=== PATIENT | male | born 1995 | race Caucasian/White ===

== ENCOUNTER 2018-01-11 17:34 | Emergency (ER) | payer BC ==
[2018-01-11 18:52] LABS: CALCIUM 8.7 mg/dL (8.5-10.1); CREATININE 1.1 mg/dL (0.7-1.3); POTASSIUM 3.8 mmol/L (3.5-5.1)
[2018-01-11 18:59] LABS: BASO % 0 % (0-3); EOS # 0.1 x10^3/uL (0.0-0.7); EOS % 1 % (0-3); HEMATOCRIT 44.7 % (39.0-53.0); HEMOGLOBIN 15.6 g/dL (13.0-17.5); LYMPH # 1.6 x10^3/uL (1.0-4.8); LYMPH % 32 % (24-48); MEAN CORPUSCULAR HEMOGLOBIN 32 pg (25-35); MEAN CORPUSCULAR HGB CONC 35 g/dL (31-37); MEAN CORPUSCULAR VOLUME 92 fL (79-100); MONO # 0.5 x10^3/uL (0.0-1.1); MONO % 11 % (0-9); NEUT # 2.8 x10^3uL (1.8-7.7); NEUT % 56 % (31-73); PLATELET COUNT 239 x10^3/uL (140-400); RED BLOOD COUNT 4.85 x10^6/uL (4.30-5.70); RED CELL DISTRIBUTION WIDTH 12.5 % (11.5-14.5); WHITE BLOOD COUNT 5.1 x10^3/uL (4.0-11.0)
--- NOTE | 2018-01-11 19:08 | PHYS DOC ---
Adult General Chief Complaint Chief Complaint CHEST PAIN HPI HPI 22 years old male presented to the emergency department with right-sided chest pain described as sharp constant pain in the right side get worse if he sleeps on the right side and also if she coughs denies shortness of breath denies hemoptysis no any other symptoms Review of Systems Review of Systems Constitutional: Denies fever or chills [] Eyes: Denies change in visual acuity, redness, or eye pain [] HENT: Denies nasal congestion or sore throat [] Respiratory: Denies cough or shortness of breath [] Cardiovascular: No additional information not addressed in HPI [] GI: Denies abdominal pain, nausea, vomiting, bloody stools or diarrhea [] : Denies dysuria or hematuria [] Musculoskeletal: Denies back pain or joint pain [] Integument: Denies rash or skin lesions [] Neurologic: Denies headache, focal weakness or sensory changes [] Endocrine: Denies polyuria or polydipsia [] All other systems were reviewed and found to be within normal limits, except as documented in this note. Allergies Allergies Allergies Coded Allergies Type Severity Reaction Last Updated Verified No Known Drug Allergies 01/11/18 No Physical Exam Physical Exam Constitutional: Well developed, well nourished, no acute distress, non-toxic appearance. [] HENT: Normocephalic, atraumatic, bilateral external ears normal, oropharynx moist, no oral exudates, nose normal. [] Eyes: PERRLA, EOMI, conjunctiva normal, no discharge. [] Neck: Normal range of motion, no tenderness, supple, no stridor. [] Cardiovascular:Heart rate regular rhythm, no murmur [] Lungs & Thorax: Bilateral breath sounds clear to auscultation [] Abdomen: Bowel sounds normal, soft, no tenderness, no masses, no pulsatile masses. [] Skin: Warm, dry, no erythema, no rash. [] Back: No tenderness, no CVA tenderness. [] Extremities: No tenderness, no cyanosis, no clubbing, ROM intact, no edema. [] Neurologic: Alert and oriented X 3, normal motor function, normal sensory function, no focal deficits noted. [] Psychologic: Affect normal, judgement normal, mood normal. [] Current Patient Data Vital Signs Vital Signs Date Time Temp Pulse Resp B/P (MAP) Pulse Ox O2 Delivery O2 Flow Rate FiO2 01/11/18 17:40 98.1 70 14 100 Room Air Lab Results Laboratory Tests Test 01/11/18 18:27 White Blood Count 5.1 x10^3/uL (4.0-11.0) Red Blood Count 4.85 x10^6/uL (4.30-5.70) Hemoglobin 15.6 g/dL (13.0-17.5) Hematocrit 44.7 % (39.0-53.0) Mean Corpuscular Volume 92 fL (79-100) Mean Corpuscular Hemoglobin 32 pg (25-35) Mean Corpuscular Hemoglobin Concent 35 g/dL (31-37) Red Cell Distribution Width 12.5 % (11.5-14.5) Platelet Count 239 x10^3/uL (140-400) Neutrophils (%) (Auto) 56 % (31-73) Lymphocytes (%) (Auto) 32 % (24-48) Monocytes (%) (Auto) 11 % (0-9) H Eosinophils (%) (Auto) 1 % (0-3) Basophils (%) (Auto) 0 % (0-3) Neutrophils # (Auto) 2.8 x10^3uL (1.8-7.7) Lymphocytes # (Auto) 1.6 x10^3/uL (1.0-4.8) Monocytes # (Auto) 0.5 x10^3/uL (0.0-1.1) Eosinophils # (Auto) 0.1 x10^3/uL (0.0-0.7) Basophils # (Auto) 0.0 x10^3/uL (0.0-0.2) Sodium Level 138 mmol/L (136-145) Potassium Level 3.8 mmol/L (3.5-5.1) Chloride Level 101 mmol/L (98-107) Carbon Dioxide Level 28 mmol/L (21-32) Anion Gap 9 (6-14) Blood Urea Nitrogen 19 mg/dL (8-26) Creatinine 1.1 mg/dL (0.7-1.3) Estimated GFR (Cockcroft-Gault) 83.0 Glucose Level 86 mg/dL (70-99) Calcium Level 8.7 mg/dL (8.5-10.1) Troponin I Quantitative < 0.017 ng/mL (0-0.055) EKG EKG [] Radiology/Procedures Radiology/Procedures [] Course & Med Decision Making Course & Med Decision Making Pertinent Labs and Imaging studies reviewed. (See chart for details) [] Final Impression Final Impression [] Problems: (1) Costochondritis, acute Dragon Disclaimer Dragon Disclaimer This electronic medical record was generated, in whole or in part, using a voice recognition dictation system. FOX MACIAS MD Jan 11, 2018 19:08
[2018-01-11 19:10] VITALS: BP 120/76
--- NOTE | 2018-01-11 21:35 | RAD ---
Single view chest dated 01/11/2018. No comparison available. Clinical data indication: Chest pain. FINDINGS: 2 upright portable images submitted. Heart and mediastinal contours are within normal limits. Small to moderate-sized apical pneumothorax on the right measuring up to 3.7 cm from the apical pleural edge to the chest wall. Left lung is clear. No pleural effusion. IMPRESSION: Small to moderate size apical pneumothorax on the right. Results discussed with ER physician at 9:30 PM on the day of the exam. Electronically signed by: Jose Musa MD (01/11/2018 9:31 PM) [facility]
--- NOTE | 2018-01-12 16:40 | EKG ---
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
== END 2018-01-11 19:20 | disposition home or self-care (01) ==
LOC: ER 17:34
DX: M94.0 Chondrocostal junction syndrome [Tietze] (principal); J93.9 Pneumothorax, unspecified
CPT/HCPCS: 36415; 71045; 80048; 84484; 85025; 93005; 99284

== ENCOUNTER 2018-01-11 22:05 | Emergency (ER) | payer BC ==
[~2018-01-11] VITALS: Ht 177.8 cm; Wt 68.0 kg
--- NOTE | 2018-01-11 22:42 | RAD ---
single view chest dated 01/11/2018. Comparison made to study dated same day. Clinical data indication: Follow-up pneumothorax. FINDINGS: Single upright portable exam performed. Heart and mediastinal contours are stable. There is a small to moderate size apical pneumothorax on the right that is unchanged, measuring approximately 3.6 cm from the pleural edge to the apical chest wall. Lungs are otherwise clear. No pleural effusion. IMPRESSION: 1. No significant interval change in right apical pneumothorax. Electronically signed by: Jose Musa MD (01/11/2018 10:38 PM) [facility]
[2018-01-11] MEDS ORDERED: LIDOCAINE 2% 20 ML VIAL. IJ ONE (22:45)
--- NOTE | 2018-01-11 23:11 | PHYS DOC ---
Adult General Chief Complaint Chief Complaint chest pain HPI HPI 22 years old gentleman presented to the emergency department with chest pain for 2 days associated with dry cough no shortness breath no other symptoms he was seen earlier in the emergency department and discharged with costochondritis radiologist reports that the reading of the x-ray showed pneumothorax patient was called back to the emergency department . Review of Systems Review of Systems Constitutional: Denies fever or chills [] Eyes: Denies change in visual acuity, redness, or eye pain [] HENT: Denies nasal congestion or sore throat [] Respiratory: Denies shortness of breath [] Cardiovascular: No additional information not addressed in HPI [] GI: Denies abdominal pain, nausea, vomiting, bloody stools or diarrhea [] : Denies dysuria or hematuria [] Musculoskeletal: Denies back pain or joint pain [] Integument: Denies rash or skin lesions [] Neurologic: Denies headache, focal weakness or sensory changes [] Endocrine: Denies polyuria or polydipsia [] All other systems were reviewed and found to be within normal limits, except as documented in this note. Current Medications Current Medications Current Medications Medications (Trade) Dose Ordered Sig/Lonnie Start Time Stop Time Status Last Admin Dose Admin Lidocaine HCl 20 ml 1X ONCE 01/11/18 22:45 01/11/18 22:46 DC Allergies Allergies Allergies Coded Allergies Type Severity Reaction Last Updated Verified No Known Drug Allergies 01/11/18 No Physical Exam Physical Exam Constitutional: Well developed, well nourished, no acute distress, non-toxic appearance. [] HENT: Normocephalic, atraumatic, bilateral external ears normal, oropharynx moist, no oral exudates, nose normal. [] Eyes: PERRLA, EOMI, conjunctiva normal, no discharge. [] Neck: Normal range of motion, no tenderness, supple, no stridor. [] Cardiovascular:Heart rate regular rhythm, no murmur [] Lungs & Thorax: Bilateral breath sounds clear to auscultation [] Abdomen: Bowel sounds normal, soft, no tenderness, no masses, no pulsatile masses. [] Skin: Warm, dry, no erythema, no rash. [] Back: No tenderness, no CVA tenderness. [] Extremities: No tenderness, no cyanosis, no clubbing, ROM intact, no edema. [] Neurologic: Alert and oriented X 3, normal motor function, normal sensory function, no focal deficits noted. [] Psychologic: Affect normal, judgement normal, mood normal. [] Current Patient Data Vital Signs Vital Signs Date Time Temp Pulse Resp B/P (MAP) Pulse Ox O2 Delivery O2 Flow Rate FiO2 01/11/18 22:14 98.0 74 20 100 Room Air EKG EKG [] Radiology/Procedures Radiology/Procedures [] Course & Med Decision Making Course & Med Decision Making Pertinent Labs and Imaging studies reviewed. (See chart for details) [] Final Impression Final Impression Heimlich valve pigtail catheter placed in the right chest cavity under local anesthesia lidocaine 2% used patient tolerated the procedure without any complication oxygen saturation 99% on room air patient is not tachypneic not tachycardic[] Problems: (1) Pneumothorax on right Dragon Disclaimer Dragon Disclaimer This electronic medical record was generated, in whole or in part, using a voice recognition dictation system. FOX MACIAS MD Jan 11, 2018 23:11
--- NOTE | 2018-01-11 23:17 | RAD ---
Single view chest dated 01/11/2018. Comparison made to study dated same day. Clinical data indication: Evaluate pneumothorax after chest tube placement. FINDINGS: Single upright portable exam performed. Heart and mediastinal contours are stable. There is been interval placement of smallbore chest tube on the right with tip projected to the right mid zone, possibly within the fissure. There is a small to moderate apical pneumothorax on the right that measures approximately 3.6 cm from the pleural-based to the apical chest wall, unchanged. Lungs are otherwise clear. No pleural effusion. IMPRESSION: No significant interval change in right-sided pneumothorax after chest tube placement. Electronically signed by: Jose Musa MD (01/11/2018 11:13 PM) [facility]
[2018-01-12 00:11] VITALS: BP 131/70
== END 2018-01-12 00:40 | disposition short-term general hospital (02) ==
LOC: ER 22:05
DX: J93.83 Other pneumothorax (principal)
CPT/HCPCS: 32551; 71045; 99285